=== PATIENT | female | born 1945 | race Caucasian/White ===

== ENCOUNTER 2017-12-21 11:01 | Emergency (ER) | payer BC ==
[~2017-12-21] VITALS: Ht 167.6 cm; Wt 52.0 kg
[2017-12-21 11:04] VITALS: Ht 167.6 cm; Wt 52.0 kg
--- NOTE | 2017-12-21 12:08 | DIAGNOSTIC IMAGING REPORT ---
CHEST 2 VIEWS ROUTINE CLINICAL HISTORY: Wheezing. COMPARISON STUDY: No previous studies for comparison. FINDINGS: Lung volumes are at the upper limits of normal. Note is made of mild s-shaped scoliosis of the thoracolumbar spine. There is no consolidation or evidence for pulmonary edema. No consolidation is identified. Cardiac size is normal. Mediastinal contours are normal. IMPRESSION: No acute cardiopulmonary findings. Electronically signed by: Dwaine Friend M.D. 12/21/2017 12:07 PM Dictated Date/Time: 12/21/2017 12:05 PM
--- NOTE | 2017-12-21 12:30 | EMERGENCY ROOM VISIT NOTE ---
History First contact with patient: 11:12 Chief Complaint: COUGH Stated Complaint: UNPRODUCTIVE COUGH, DEEP ACHE IN RIBS AND SHOULDER Nursing Triage Summary: pt to the ED wheezy cough and getting worse and last night had a restless night called triage nurse and they told her to come nonproductive cough left shoulder pain for several weeks and rib pain last night History of Present Illness The patient is a 72 year old female who presents to the Emergency Room with complaints of headache, sinus congestion, wheezing that started yesterday. She stated that she had been dealing with a dry cough and rib pain which is worse on taking deep breaths. Denies any fevers but has had intermittent chills with shaking. Her was recently diagnosed with pneumonia and she was concerned about having pneumonia. Denies any body aches or other flulike symptoms. Also complains of left shoulder pain and stiffness and is concerned about Lyme that she had a tick bite in October. Also complains of urgency but denies any dysuria or hematuria Review of Systems See HPI for pertinent positives & negatives. A total of 10 systems reviewed and were otherwise negative. Past Medical/Surgical History Medical Problems: (1) Migraine headache Current/Historical Medications Scheduled PRN Herbals (Herbals), 5 ML PO BLANK PRN for ILLNESS Physical Exam Vital Signs Date Time Temp Pulse Resp B/P (MAP) Pulse Ox O2 Delivery O2 Flow Rate FiO2 12/21/17 11:04 37.0 95 16 138/87 95 Physical Exam GENERAL: Patient is in no acute distress. HEENT: No acute trauma, normocephalic atraumatic, mucous membranes moist, no nasal congestion, no scleral icterus. NECK: No stridor, no adenopathy, no meningismus, trachea is midline. LUNGS: Clear to auscultation bilaterally, no wheeze, no rhonchi, breath sounds equal. HEART: Without murmurs gallops or rubs, regular rate and rhythm. ABDOMEN: Soft, nontender, bowel sounds positive, no hernias, no peritonitis. EXTREMITIES: No cyanosis or edema, full range of motion of all the joints without pain or difficulty, no signs for acute trauma. NEUROLOGIC: Oriented x 3, no acute motor or sensory deficits, no focal weakness. SKIN: No rash, no jaundice, no diaphoresis. Medical Decision & Procedures ER Provider Diagnostic Interpretation: CHEST 2 VIEWS ROUTINE CLINICAL HISTORY: Wheezing. COMPARISON STUDY: No previous studies for comparison. FINDINGS: Lung volumes are at the upper limits of normal. Note is made of mild s-shaped scoliosis of the thoracolumbar spine. There is no consolidation or evidence for pulmonary edema. No consolidation is identified. Cardiac size is normal. Mediastinal contours are normal. IMPRESSION: No acute cardiopulmonary findings. Electronically signed by: Dwaine Friend M.D. 12/21/2017 12:07 PM Dictated Date/Time: 12/21/2017 12:05 PM Laboratory Results 12/21/17 12:25 Red Blood Count 4.38, Mean Corpuscular Volume 90.0, Mean Corpuscular Hemoglobin 30.4, Mean Corpuscular Hemoglobin Concent 33.8, Mean Platelet Volume 8.9, Neutrophils (%) (Auto) 58.9, Lymphocytes (%) (Auto) 22.3, Monocytes (%) (Auto) 18.2, Eosinophils (%) (Auto) 0.3, Basophils (%) (Auto) 0.3, Neutrophils # (Auto ) 1.87, Lymphocytes # (Auto) 0.71, Monocytes # (Auto) 0.58, Eosinophils # (Auto ) 0.01, Basophils # (Auto) 0.01 12/21/17 12:25 Test 12/21/17 10:00 12/21/17 12:25 Urine Color YELLOW Urine Appearance CLEAR (CLEAR) Urine pH 8.0 (4.5-7.5) Urine Specific [place] 1.004 (1.000-1.030) Urine Protein NEG (NEG) Urine Glucose (UA) NEG (NEG) Urine Ketones NEG (NEG) Urine Occult Blood NEG (NEG) Urine Nitrite NEG (NEG) Urine Bilirubin NEG (NEG) Urine Urobilinogen NEG (NEG) Urine Leukocyte Esterase NEG (NEG) White Blood Count 3.18 K/uL (4.8-10.8) Red Blood Count 4.38 M/uL (4.2-5.4) Hemoglobin 13.3 g/dL (12.0-16.0) Hematocrit 39.4 % (37-47) Mean Corpuscular Volume 90.0 fL (80-100) Mean Corpuscular Hemoglobin 30.4 pg (25-34) Mean Corpuscular Hemoglobin Concent 33.8 g/dl (32-36) Platelet Count 141 K/uL (130-400) Mean Platelet Volume 8.9 fL (7.4-10.4) Neutrophils (%) (Auto) 58.9 % Lymphocytes (%) (Auto) 22.3 % Monocytes (%) (Auto) 18.2 % Eosinophils (%) (Auto) 0.3 % Basophils (%) (Auto) 0.3 % Neutrophils # (Auto) 1.87 K/uL (1.4-6.5) Lymphocytes # (Auto) 0.71 K/uL (1.2-3.4) Monocytes # (Auto) 0.58 K/uL (0.11-0.59) Eosinophils # (Auto) 0.01 K/uL (0-0.5) Basophils # (Auto) 0.01 K/uL (0-0.2) RDW Standard Deviation 45.6 fL (36.4-46.3) RDW Coefficient of Variation 13.8 % (11.5-14.5) Immature Granulocyte % (Auto) 0.0 % Immature Granulocyte # (Auto) 0.00 K/uL (0.00-0.02) Anion Gap 8.0 mmol/L (3-11) Est Creatinine Clear Calc Drug Dose 57.2 ml/min Estimated GFR () 95.4 Estimated GFR (Non- 82.3 BUN/Creatinine Ratio 12.1 (10-20) Calcium Level 9.4 mg/dl (8.5-10.1) Lyme Disease IgG Antibody NEG (NEG) Lyme Disease IgM Antibody NEG (NEG) Medical Decision Prior records/ancillary studies reviewed. Triage Nursing notes reviewed. Additional history obtained from the family. The patient's history was concerning for cough and wheezing. Differential diagnosis: Etiologies such as infections, reactive airway disease, pneumonia, pneumothorax , COPD, CHF, cardiac ischemia, pulmonary embolism, musculoskeletal, gastrointestinal, as well as others were entertained. Physical examination: As above. ER treatment provided: CBC, BMP, CXR, lyme serology was obtained On reassessment the patient felt better. Diagnostic interpretation by me The labs revealed K of 3.3 which was replaced with 40 meq KCl Imaging studies: Chest x-ray as above. By the evaluation outlined above emergent etiologies such as CHF, cardiac ischemia, pulmonary embolism, reactive airway disease, pneumonia, pneumothorax, musculoskeletal, serious bacterial infections, as well as others were deemed relatively unlikely. The patient was informed about the findings as listed above. All questions were answered and she was pleased with the treatment. Return instructions were outlined and the patient was discharged in stable condition. Referral: The patient was referred back to their primary care physician for follow-up in 2 to 3 days for a recheck of the current condition. The patient is a 72 year old female who presents to the Emergency Room with complaints of headache, sinus congestion, wheezing that started yesterday. She stated that she had been dealing with a dry cough and rib pain which is worse on taking deep breaths. CBC, BMP and a chest x-ray were obtained which were essentially negative but her K was 3.3 which was replaced with 40 mEq of KCl. She also complained of urgency without dysuria and a UA was obtained which was negative. She was concerned about left shoulder stiffness and was concerned about tick bite in October and the possibility of Lyme disease, Lyme serology was obtained which was also negative. She was discharged in a stable condition and recommended to follow-up with her PCP. Impression Primary Impression: Cough Departure Information Referrals Jian Aguilar M.D. (PCP) Patient Instructions My [facility] Resident Tracking Resident Involvement: Resident Care Provided Care Provided: Adult ED
[2017-12-21 12:39] LABS: BASO % 0.3 %; BASO ABS # 0.01 K/uL (0-0.2); EOS % 0.3 %; EOS ABS # 0.01 K/uL (0-0.5); HEMATOCRIT 39.4 % (37-47); HEMOGLOBIN 13.3 g/dL (12.0-16.0); LYMPH % 22.3 %; LYMPH ABS # 0.71 K/uL (1.2-3.4); MEAN CORPUSCULAR HEMOGLOBIN 30.4 pg (25-34); MEAN CORPUSCULAR HGB CONC 33.8 g/dl (32-36); MEAN PLATELET VOLUME 8.9 fL (7.4-10.4); MONO % 18.2 %; MONO ABS # 0.58 K/uL (0.11-0.59); NEUT % 58.9 %; NEUT ABS # 1.87 K/uL (1.4-6.5); PLATELET COUNT 141 K/uL (130-400); RED CELL DISTRIBUTION WIDTH CV 13.8 % (11.5-14.5); RED CELL DISTRIBUTION WIDTH SD 45.6 fL (36.4-46.3); WHITE BLOOD COUNT 3.18 K/uL (4.8-10.8)
[2017-12-21] MEDS ORDERED: HRBLS PO (12:44)
[2017-12-21 12:53] LABS: CALCIUM 9.4 mg/dl (8.5-10.1); CREATININE 0.73 mg/dl (0.60-1.20); POTASSIUM 3.3 mmol/L (3.5-5.1)
[2017-12-21] MEDS ORDERED: POTASSIUM CHLORIDE 20 MEQ TABCR PO STA (13:10)
--- NOTE | 2017-12-21 13:25 | EMERGENCY ROOM VISIT NOTE ---
History Report prepared by Patibe: Barbara Florez Under the Supervision of: Dr. Peter James D.O. First contact with patient: 11:12 Chief Complaint: COUGH Stated Complaint: UNPRODUCTIVE COUGH, DEEP ACHE IN RIBS AND SHOULDER Nursing Triage Summary: pt to the ED wheezy cough and getting worse and last night had a restless night called triage nurse and they told her to come nonproductive cough left shoulder pain for several weeks and rib pain last night History of Present Illness The patient is a 72 year old female who presents to the Emergency Room with complaints of a persistent cough for the past few days. Last night the cough worsened, and she didn't sleep well, so she called a triage nurse and they referred her here to the ED this morning. The cough is non-productive but she has felt like her breathing is "wheezy". The patient also complains of left shoulder pain for the past several weeks and rib pain from her cough. 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 A total of 10 systems reviewed and were otherwise negative. Past Medical & Surgical Medical Problems: (1) Migraine headache Social History Alcohol Use: occasionally Drug Use: none Marital Status: Housing Status: lives with family Occupation Status: retired Current/Historical Medications Scheduled PRN Herbals (Herbals), 5 ML PO BLANK PRN for ILLNESS Allergies Coded Allergies: Sulfamethoxazole w/Trimethoprim (Verified Allergy, Unknown, TACHYCARDIA, TREMORS, 12/21/17) Uncoded Nonscreenable Allergen (Verified Allergy, Unknown, UNKNOWN ABX CAUSED RASH AND DIARRHEA, 12/21/17) Physical Exam Vital Signs Date Time Temp Pulse Resp B/P (MAP) Pulse Ox O2 Delivery O2 Flow Rate FiO2 12/21/17 14:17 37.0 95 16 138/87 95 12/21/17 11:04 37.0 95 16 138/87 95 Physical Exam CONSTITUTIONAL/VITAL SIGNS: Reviewed / noted above. GENERAL: Non-toxic in appearance. INTEGUMENTARY: Warm, dry, and [place]. HEAD: Normocephalic. EYES: without scleral icterus or trauma. ENT/OROPHARYNX: clear and moist. LYMPHADENOPATHY/NECK: Is supple without lymphadenopathy or meningismus. RESPIRATORY: Lungs clear and equal. CARDIOVASCULAR: Regular rate and rhythm. GI/ABDOMEN: Soft and nontender. No organomegaly or pulsatile mass. No rebound or guarding. Normal bowel sounds. EXTREMITIES: Warm and well perfused. BACK: No CVA tenderness. NEUROLOGICAL: Intact without focal deficits. PSYCHIATRIC: normal affect. MUSCULOSKELETAL: Normally developed with good muscle tone. Medical Decision & Procedures ER Provider Diagnostic Interpretation: Radiology results as stated below per my review and radiologist interpretation: CHEST 2 VIEWS ROUTINE CLINICAL HISTORY: Wheezing. COMPARISON STUDY: No previous studies for comparison. FINDINGS: Lung volumes are at the upper limits of normal. Note is made of mild s-shaped scoliosis of the thoracolumbar spine. There is no consolidation or evidence for pulmonary edema. No consolidation is identified. Cardiac size is normal. Mediastinal contours are normal. IMPRESSION: No acute cardiopulmonary findings. Electronically signed by: Dwaine Friend M.D. 12/21/2017 12:07 PM Laboratory Results 12/21/17 12:25 Red Blood Count 4.38, Mean Corpuscular Volume 90.0, Mean Corpuscular Hemoglobin 30.4, Mean Corpuscular Hemoglobin Concent 33.8, Mean Platelet Volume 8.9, Neutrophils (%) (Auto) 58.9, Lymphocytes (%) (Auto) 22.3, Monocytes (%) (Auto) 18.2, Eosinophils (%) (Auto) 0.3, Basophils (%) (Auto) 0.3, Neutrophils # (Auto ) 1.87, Lymphocytes # (Auto) 0.71, Monocytes # (Auto) 0.58, Eosinophils # (Auto ) 0.01, Basophils # (Auto) 0.01 12/21/17 12:25 Test 12/21/17 10:00 12/21/17 12:25 Urine Color YELLOW Urine Appearance CLEAR (CLEAR) Urine pH 8.0 (4.5-7.5) Urine Specific [place] 1.004 (1.000-1.030) Urine Protein NEG (NEG) Urine Glucose (UA) NEG (NEG) Urine Ketones NEG (NEG) Urine Occult Blood NEG (NEG) Urine Nitrite NEG (NEG) Urine Bilirubin NEG (NEG) Urine Urobilinogen NEG (NEG) Urine Leukocyte Esterase NEG (NEG) White Blood Count 3.18 K/uL (4.8-10.8) Red Blood Count 4.38 M/uL (4.2-5.4) Hemoglobin 13.3 g/dL (12.0-16.0) Hematocrit 39.4 % (37-47) Mean Corpuscular Volume 90.0 fL (80-100) Mean Corpuscular Hemoglobin 30.4 pg (25-34) Mean Corpuscular Hemoglobin Concent 33.8 g/dl (32-36) Platelet Count 141 K/uL (130-400) Mean Platelet Volume 8.9 fL (7.4-10.4) Neutrophils (%) (Auto) 58.9 % Lymphocytes (%) (Auto) 22.3 % Monocytes (%) (Auto) 18.2 % Eosinophils (%) (Auto) 0.3 % Basophils (%) (Auto) 0.3 % Neutrophils # (Auto) 1.87 K/uL (1.4-6.5) Lymphocytes # (Auto) 0.71 K/uL (1.2-3.4) Monocytes # (Auto) 0.58 K/uL (0.11-0.59) Eosinophils # (Auto) 0.01 K/uL (0-0.5) Basophils # (Auto) 0.01 K/uL (0-0.2) RDW Standard Deviation 45.6 fL (36.4-46.3) RDW Coefficient of Variation 13.8 % (11.5-14.5) Immature Granulocyte % (Auto) 0.0 % Immature Granulocyte # (Auto) 0.00 K/uL (0.00-0.02) Anion Gap 8.0 mmol/L (3-11) Est Creatinine Clear Calc Drug Dose 57.2 ml/min Estimated GFR () 95.4 Estimated GFR (Non- 82.3 BUN/Creatinine Ratio 12.1 (10-20) Calcium Level 9.4 mg/dl (8.5-10.1) Lyme Disease IgG Antibody NEG (NEG) Lyme Disease IgM Antibody NEG (NEG) Laboratory results as stated above per my review. Medications Administered Medications (Trade) Dose Ordered Sig/Hollie Route Start Time Stop Time Status Last Admin Dose Admin Potassium Chloride (Hope Ciel Elix) 40 meq NOW STAT PO 12/21/17 14:08 12/21/17 14:09 DC 12/21/17 14:16 40 MEQ ED Course 1205: Previous medical records were reviewed. The patient was evaluated in room C6. A complete history and physical examination was performed. 1310: Potassium Chloride 40 meq PO. 1350: I reevaluated the patient. She is resting comfortably and feeling well. I discussed her results and discharge instructions and she verbalized complete understanding and agreement. Medical Decision Differential includes viral illness, influenza, streptococcal pharyngitis, meningitis, pneumonia, sinusitis, UTI, pyelonephritis, otitis media. This is a 72-year-old female who presents to the ED with a chief complaint of congestion, wheezing, chills, dry cough, rib pain with a deep cough and history of a tick bite in October. Patient's symptoms mostly started yesterday. She states that her is also sick with an upper respiratory infection/ pneumonia. The patient's vital signs today are normal. Her physical exam was unremarkable. She has a mild cough on occasion. Her lungs are clear. She is in no distress. Chest x-ray did not show acute disease, urine did not show infection, PRP was unremarkable. CBC is normal, Lyme test was negative. The patient was told the results. She was seen with the resident. She is felt to be stable for discharge. Medication Reconcilliation Current Medication List: was personally reviewed by me Blood Pressure Screening Patient's blood pressure: Normal blood pressure Blood pressure disposition: Did not require urgent referral Impression Primary Impression: Acute bronchitis Scribe Attestation The scribe's documentation has been prepared under my direction and personally reviewed by me in its entirety. I confirm that the note above accurately reflects all work, treatment, procedures, and medical decision making performed by me. Departure Information Dispostion Home / Self-Care Referrals Jian Aguilar M.D. (PCP) Patient Instructions My [facility]
[2017-12-21] MEDS ORDERED: POTASSIUM CHLORIDE 20 MEQ/15 ML UDC PO STA (14:08)
[2017-12-21 14:17] VITALS: BP 138/87; PULSE 95; TEMP 37; O2SAT 95
== END 2017-12-21 14:18 | disposition home or self-care (01) ==
LOC: C.EDB 11:02 → C.EDC 14:18
DX: J20.9 Acute bronchitis, unspecified (principal); E87.6 Hypokalemia; R39.15 Urgency of urination; M25.612 Stiffness of left shoulder, not elsewhere classified; Z88.2 Allergy status to sulfonamides